=== PATIENT | female | born 1975 | race Hispanic/Latino ===

== ENCOUNTER → 2017-08-12 | Outpatient (CLI) | payer OTHER ==
--- NOTE | 2017-08-12 10:33 | Diagnostic Imaging Report ---
PROCEDURE: US THYROID COMPARISON: None. INDICATIONS:THYROID NODULE TECHNIQUE: Transverse and longitudinal merino-scale sonographic images of the thyroid were obtained and supplemented with color doppler. FINDINGS: Right thyroid lobe: 4.6 x 2 x 2.3 cm. 0.6 x 0.4 x 0.6 cm nodule in the interpolar region with characteristics as follows: Solid (2 points) Hypoechoic (2 points) Wider than tall (zero points) Smooth margin (zero points) No echogenic foci (zero points) Left thyroid lobe: 5 by 2 x 2 centimeters. 0.7 x 0.4 x 0.8 cm nodule in the upper pole with characteristics as follows: Solid (2 points) Hypoechoic (2 points) Wider than tall (zero points) Smooth margin (zero points) No echogenic foci (zero points) 1.1 x 0.5 x 1.1 cm ovoid nodule in the interpolar region with characteristics as follows: Solid (2 points) Hypoechoic (2 points) Wider than tall (zero points) Smooth margin (zero points) No echogenic foci (zero points) Isthmus: 0.4 cm in thickness. CONCLUSION: Bilateral thyroid nodules as described above. Per 2017 ACR TI-RADS criteria, a followup thyroid ultrasound in one year is suggested to assess for stability of the largest left-sided nodule. Dictated by: Pascual Clement M.D. on 08/12/2017 at 10:36 Electronically approved by: Pascual Clement M.D. on 08/12/2017 at 10:36
--- NOTE | 2017-08-13 15:13 | Diagnostic Imaging Report ---
#[id number] - MGSCRBIL #BILATERAL DIGITAL SCREENING MAMMOGRAM WITH CAD: 08/12/2017 CLINICAL: Routine screening. Comparison is made to exams dated: 12/20/2014 mammogram and 06/11/2011 mammogram - [facility]. Current study contains 8 films. The tissue of both breasts is extremely dense, which lowers the sensitivity of mammography. Current study was also evaluated with a Computer Aided Detection (CAD) system. There are benign lymph nodes in both breasts. Bilateral breast implants are intact. No significant masses, calcifications, or other findings are seen in either breast. There has been no significant interval change. IMPRESSION: BENIGN There is no mammographic evidence of malignancy. A 1 year screening mammogram is recommended. The patient will be notified by letter of the results. Sean valadez/kristy:08/13/2017 10:46:50 Gasfitter: Velma RODRIGUEZ(Glen)([place]), [facility] letter sent: Compared to Prior B9 Mammogram BI-RADS: 2 Benign
== END ==
LOC: MAMMO 08:40
PROVIDERS: ATTEND Family Medicine
DX: Z12.31 Encounter for screening mammogram for malignant neoplasm of breast (principal); E04.1 Nontoxic single thyroid nodule
CPT/HCPCS: 76536; 77067

== ENCOUNTER → 2019-12-09 | Outpatient (CLI) | payer BC ==
--- NOTE | 2019-12-09 12:17 | Diagnostic Imaging Report ---
EXAM: US ABDOMEN COMPLETE DATE: 12/09/2019 10:55 AM INDICATION: ^ABDOMEN PAIN COMPARISON: None TECHNIQUE: Transverse and longitudinal vazquez scale and color doppler sonographic images of the abdomen were obtained. FINDINGS: LIVER 12.0 cm in the right midclavicular line. Normal echogenicity of the liver with normal contour, no masses. SPLEEN 8.7 cm in maximum diameter. Normal echogenicity, no masses. GALLBLADDER No gallbladder wall thickening, distension, stone, or pericholecystic fluid. Negative reported sonographic Cabrera's sign. BILE DUCTS No intra nor extra-hepatic biliary dilation. Common bile duct measures 0.2cm PANCREAS: Visualized portions are normal. RIGHT KIDNEY: 11.0 cm Echogenicity: Normal Collecting System: No hydronephrosis Stones: None Cyst/Mass: None LEFT KIDNEY: 12.2 cm Echogenicity: Normal Collecting System: No hydronephrosis Stones: None Cyst/Mass: None VESSELS: Aorta: Visualized portions are within normal size limits Inferior Vena Cava: Visualized portions are normal Main Portal Vein: 0.6 cm, normal size with hepatopetal flow. FREE FLUID: None IMPRESSION: Unremarkable complete abdominal ultrasound. Signed by: John Madden MD on 12/09/2019 12:13 PM
--- NOTE | 2019-12-09 13:42 | Diagnostic Imaging Report ---
HISTORY : Abnormal menstrual cycle COMPARISON : None Comment: Ultrasound examination of the pelvis was performed transabdominally and transvaginally. The uterus is homogeneous in echotexture. The uterus measures 9.0 x 4.1 x 5.2 cm. The endometrial stripe appears unremarkable and measures 0.7 cm in maximum thickness. Cervical nabothian cysts are noted measuring up to 1.7 and 1.2 cm. The right ovary measures 3.4 x 2.2 x 2.7 cm. Right ovarian follicle/physiologic cyst identified The left ovary is not well visualized due to overlying bowel gas. Trace free fluid is noted in the cul-de-sac, within physiologic limits. IMPRESSION : 1. Unremarkable ultrasound of the uterus for age. Cervical nabothian cyst identified. 2. Right ovary is unremarkable. Left ovary is not well visualized due to overlying bowel gas. Signed by: John Madden MD on 12/09/2019 1:39 PM
== END ==
LOC: US 10:31
PROVIDERS: ATTEND Family Medicine
DX: R10.9 Unspecified abdominal pain (principal); N92.6 Irregular menstruation, unspecified
CPT/HCPCS: 76700; 76830; 76856

== ENCOUNTER → 2019-12-20 | Outpatient (CLI) | payer BC ==
--- NOTE | 2019-12-20 13:20 | Diagnostic Imaging Report ---
EXAM: Thyroid Ultrasound INDICATION: Thyroid nodules ^[id number] ^3 ^THYROID NODULE COMPARISON: None TECHNIQUE: Transverse and sagittal images were obtained of the thyroid gland. FINDINGS: Thyroid gland: Size: Right lobe: 5.3 x 1.6 x 2.3 cm, Normal in size Left lobe: 5.2 x 1.8 x 1.9 cm, Normal in size Isthmus: 0.4 cm, Normal in size Appearance: Homogeneous echotexture without increased vascularity Masses/Nodules: Right lobe: 0.6 x 0.4 x 0.6 cm solid (2 pts) nodule in the interpolar region with smooth margin (0 pts), vjkuf-ciya-pyds (0 pts), hypoechoic (2 pts), and no calcifications (0 pts). TR4a (<1.0 cm): No follow-up. 0.5 x 0.3 x 0.5 cm solid (2 pts) nodule in the right isthmus with smooth margin (0 pts), spejo-pwgv-bijs (0 pts), hypoechoic (2 pts), and no calcifications (0 pts). Right-sided TR4a (<1.0 cm): No follow-up. Left lobe: 1.2 x 0.6 x 1.0 cm solid (2 pts) nodule in the superior pole with smooth margin (0 pts), twmis-ezxw-uvqj (0 pts), hypoechoic (2 pts), and punctate echogenic foci (3 pts). TR5c (>1.0 cm), Highly Suspicious: FNA. 0.8 x 0.5 x 0.6 cm solid (2 pts) nodule in the interpolar region with smooth margin (0 pts), xyfxr-xazk-gdlh (0 pts), hypoechoic (2 pts), and no calcifications (0 pts). TR4a (<1.0 cm): No follow-up. Parathyroid: No focal parathyroid masses. IMPRESSION: Left lobe: 1.2 x 0.6 x 1.0 cm solid (2 pts) nodule in the superior pole with smooth margin (0 pts), vevoi-citj-imce (0 pts), hypoechoic (2 pts), and punctate echogenic foci (3 pts). TR5c (>1.0 cm), Highly Suspicious: FNA. TI-RADS Lexicon: TR1, Benign: No FNA TR2, Not Suspicious: No FNA. TR3a (<1.5 cm): No follow-up. TR3b (1.5-2.5 cm), Mildly Suspicious: Follow at 1, 3, 5 years. TR3c (>2.5 cm), Mildly Suspicious: FNA. TR4a (<1.0 cm): No follow-up. TR4b (1.0-1.5 cm), Moderately Suspicious: Follow at 1, 2, 3, 5 years. TR4c (>1.5 cm), Moderately Suspicious: FNA. TR5a (<0.5 cm): No follow-up. TR5b (0.5-1.0 cm), Highly Suspicious: Follow at 1, 2, 3, 4, 5 years. TR5c (>1.0 cm), Highly Suspicious: FNA. *Rebiopsy if new suspicious features *No recommendation at this time for significant interval growth. Nodule Characteristics: * Benign features: cystic, hyperechoic, comet-tail artifact, complete halo * Minor suspicious features: solid, hypoechoic, other calcifications * Major suspicious features: microcalcifications, marked hypoechoic (less than strap muscle), suspicious lymph nodes, taller than wide, lobulated or ill-defined margins. Literature: ACR Thyroid Imaging, Reporting and Data System (TI-RADS): White Paper of the ACR TI-RADS Committee. J Am Cesar Radiol 2017. Signed by: Dr. Luis Henriquez M.D. on 12/20/2019 1:17 PM
== END ==
LOC: US 11:17
PROVIDERS: ATTEND Family Medicine
DX: E04.1 Nontoxic single thyroid nodule (principal)
CPT/HCPCS: 76536

== ENCOUNTER → 2020-01-03 | Outpatient (CLI) | payer BC ==
[~2020-01-03] MED LIST: LIDOCAINE HCL 1% LOCAL INJ 20 ML VIAL ONE
--- NOTE | 2020-01-03 10:57 | Diagnostic Imaging Report ---
HISTORY: Left suspicious thyroid nodule COMPARISON: 12/20/2019 DISCUSSION: Chair Installer image was obtained prior to the biopsy. There is a circumscribed hypoechoic nodule in the left thyroid gland measuring 1.1 x 0.5 x 0.9 cm. The procedure including the risks and complications of the procedure were explained to the patient and the patient consented. The skin was prepped and draped in the usual sterile manner. Local anesthetic (1% lidocaine) was administered under ultrasound guidance. Under ultrasound guidance, a total of 4 fine needle aspiration biopsy samples were obtained using a 5 gauge needle. The specimens were placed into Saccomanno fluid and were sent to pathology for analysis. There were no immediate complications. IMPRESSION: Successful fine needle aspiration biopsy of a left thyroid nodule. There were no immediate complications. Signed by: John Madden MD on 01/03/2020 10:54 AM
== END ==
LOC: US 09:28
PROVIDERS: ATTEND Internal Medicine Endocrinology, Diabetes & Metabolism
DX: E04.1 Nontoxic single thyroid nodule (principal)
CPT/HCPCS: 10005; 88112; 88305; J2001

== ENCOUNTER 2020-01-16 17:35 | Observation (INO) | payer BC ==
[~2020-01-16] VITALS: Ht 162.6 cm; Wt 77.1 kg
[2020-01-16 17:35] VITALS: BP 125/78
--- NOTE | 2020-01-16 17:35 | NUR ---
Received patient direct admit via EMS. Respiration even and unlabored without SOB. Call light in reach. Denies pain at this time. PIV to left AC 20g intact, patent. Patient orientated to room and how to use the bed and call light. Home Medication reconciled and clarified with the patient. Call light in reach.
--- OUTSIDE RECORDS SUMMARY | 2020-01-16 17:38 | XMS REPORT | Continuity of Care Document ---
Author Author [facility] Organization [facility] Address Unknown Phone Unavailable Care Team Providers Care Shiftman Name Role Phone Datavail Information [employer] Unavailable Un available Problems Problem Status Onset Date Classification Date Reported Comments Source M53.3 - "SACROCOCCYGEAL DISORDERS, NOT" Active 06/05/2016 [facility] [place] M62.838 - OTHER MUSCLE SPASM A ctive 05/02/2016 [facility] Attention deficit hyperactivity disorder (disorder) Resolved Problem 04/16/2019 [facility] Premenstrual dysphoric disorder (disorder) Resolved Problem 04/16/2019 [facility] Simple obesity (disorder) Acti ve Problem Medical [facility] Joint pain Active Diagnosis 09/30/2017 Elvin Soriano Medications Medication Details Route Status Patient Instructions Ordering Provider Order Date Source Ciprofloxacin 500 MG Oral Tablet [Cipro] 500 mg = 1 tab, PO, Q12H, for UTI, X 7 day, # 14 tab, 0 Refill(s), Pharmacy: [facility]/pharmacy #[id number] Active 07/13/2018 [facility] Ciprofloxacin 500 MG Oral Tablet [Cipro] 500 mg = 1 tab, PO, Q12H, for UTI, X 5 day, # 10 tab, 0 Refill(s), Pharmacy: [facility]/pharmacy #[id number] Active 06/21/2018 [facility] Wellbutrin PO, 0 Refill(s) Active 06/21/2018 [facility] Lexapro PO, Daily, 0 Refill(s) Active 06/21/2018 [facility] Vyvanse QAM, 0 Refill(s) Active 06/21/2018 [facility] Fluoxetine 1 capsule in the mo rning Orally Active 20 MG Orally Once a day Adelina Elvin Soriano Vyvanse 1 capsule in the morni ng Orally Active 50 MG Orally Once a day Adelina Elvin Soriano Allergies, Adverse Reactions, Alerts Substance Category Reaction Severity Reaction type Status Date Reported Comments Source N.K.D.A. Adverse Reaction Info Not Available Adverse Reaction Active 09/23/2017 Elvin Soirano No Known Medication Allergies Assertion Drug aller gy [facility] [place] Immunizations No Data Provided for This Section Results Order Name Results Value Reference Range Date Interpretation Comments Source URINE AND STOOL POC UA LeukEst Negative *NA* (07/12/18 8:42 PM) Negative 07/13/2018 [facility] URINE AND STOOL POC UA Uro 0.2 0.1 - 1.0 07/13/2018 [facility] URINE AND STOOL POC UA Nit Negative *NA* (07/12/18 8:42 PM) Negative 07/13/2018 [facility] URINE AND STOOL POC UA Color Dark yellow 07/13/2018 [facility] URINE AND STOOL POC UA Bili Negative *NA* (07/12/18 8:42 PM) Negative 07/13/2018 [facility] URINE AND STOOL POC UA Bld Moderate *ABN* (07/12/18 8:42 PM) Negative 07/13/2018 [facility] URINE AND STOOL POC UA Prot 30 mg/dL Negative mg/dL 07/13/2018 [facility] URINE AND STOOL POC UA Glu Negative mg/dL Negative mg/dL 07/13/2018 [facility] URINE AND STOOL POC UA Ket Negative mg/dL Negative mg/dL 07/13/2018 [facility] URINE AND STOOL POC UA Turbidity Cloudy *ABN* (07/12/18 8:42 PM) Clear 07/13/2018 [facility] URINE AND STOOL POC UA SG >=1.030 *ABN* (07/12/18 8:42 PM) <=1.030 07/13/2018 [facility] URINE AND STOOL POC UA pH 5.5 5.0 - 8.0 07/13/2018 [facility] Pathology Reports No Data Provided for This Section Diagnostic Reports Report Value Date Source Spine cervical 2 or 3 view DX EXAM: XR CERVICAL SPINE 3 VIEWS DATE: 04/13/2019 15:51 EDUCATION COUNSELOR INDICATION: - BACK MUSCLE SPASM COMPARISON: None available TECHNIQUE: AP, open-mouth odontoid and lateral radiographs of the cervical spine - 3 views FINDINGS: No spondylolisthesis present. Vertebral body heights are normal. No cervical spine fracture is identified. No prevertebral soft tissue edema observed. Anterior cervical discectomy and fusion present at C5-C7. Bone graft cage markers are in satisfactory position. Moderate facet arthropathy present at C7-T1. IMPRESSION: Satisfactory appearance of anterior cervical discectomy and fusion at C5-C7. Moderate facet arthropathy at C7-T1. 04/13/2019 [facility] Shoulder series DX EXAM: XR RI GHT SHOULDER 3 VIEWS DATE: 04/13/2019 15:50 EDUCATION COUNSELOR INDICATION: - CHRONIC RIGHT SHOULDER PAIN COMPARISON: None available TECHNIQUE: Right shoulder - 3 views FINDINGS: No fracture, periosteal reaction, or erosions identified. Joint alignment is normal. Inferior acromial spurs predisposing to rotator cuff pathology noted. Partially visualized anterior cervical discectomy and fusion hardware in the cervical spine noted. Soft tissues are unremarkable. IMPRESSION: Inferior acromial spurs predisposing to rotator cuff pathology. 04/13/2019 [facility] Hand 2 views Bilateral DX EXAM : XR BILATERAL HAND 2 VIEWS DATE: 04/13/2019 15:50 EDUCATION COUNSELOR INDICATION: - ARTHRALGIA OF HAND, LEFT, ARTHRALGIA OF HAND, RIGHT COMPARISON: None available TECHNIQUE: Bilateral PA, lateral radiographs of the hands. FINDINGS: No fracture, periosteal reaction, or erosions identified. Joint alignment is normal. Soft tissues are unremarkable. IMPRESSION: No radiographic evidence of inflammatory arthropathy identified. 04/13/2019 [facility] Hip bilat w pelvis and both lat hips DX EXAM: XR BILATERAL HIP 2 VIEWS DATE: 05/02/2016 11:28 AM CDT INDICATION: M70.61 Trochanteric bursitis, right hip COMPARISON: None TECHNIQUE: 2 views of each hip, including the pelvis FINDINGS: No acute fracture or malalignment is identified. Hip joint spaces are preserved bilaterally. SI joints are unremarkable. Lower lumbar spine appear normal. No soft tissue abnormality is identified. IMPRESSION: No significant abnormality. 05/02/2016 [facility] Hand 2 views Bilateral DX EXAM : XR BILATERAL HAND 2 VIEWS DATE: 05/02/2016 11:28 AM CDT INDICATION: M15.1 Heberden's nodes (with arthropathy) COMPARISON: None TECHNIQUE: PA and lateral radiographs of the bilateral hands. FINDINGS: No acute fracture or malalignment is identified. Joint spaces and bone mineral density are preserved. No soft tissue abnormality is identified. IMPRESSION: No significant bone or joint abnormality. 05/02/2016 [facility] Spine cervical 2 or 3 view DX EXAM: XR CERVICAL SPINE 3 VIEWS DATE: 05/02/2016 11:28 AM CDT INDICATION: Polyarthritis COMPARISON: None TECHNIQUE: AP, open-mouth odontoid and lateral views of the cervical spine FINDINGS: On the lateral views, the C-spine is visualized from C1 to C6. Alignment and vertebral body heights are intact. No fracture or dislocation. No osseous lesion. Atlantoaxial junction appears unremarkable. No soft tissue abnormality. IMPRESSION: 1. No significant abnormality identified in the C-spine. 05/02/2016 [facility] Consultation Notes No Data Provided for This Section Discharge Summaries No Data Provided for This Section History and Physicals No Data Provided for This Section Vital Signs Vital Sign Value Date Comments Source Temperature Oral (F) 99.2 F 07/13/2018 [facility] BMI Calculated 32 07/13/2018 [facility] Weight 84.574 07/13/2018 [facility] Systolic (mm Hg) 128 07/13/2018 [facility] Diastolic (mm Hg) 85 07/13/2018 [facility] Height 162.56 cm 07/13/2018 [facility] Heart Rate 78 07/13/2018 [facility] Weight 85.568 06/21/2018 [facility] BMI Calculated 32.38 06/21/2018 [facility] Height 162.56 cm 06/21/2018 [facility] Temperature Oral (F) 98.2 F 06/21/2018 [facility] Systolic (mm Hg) 151 06/21/2018 [facility] Diastolic (mm Hg) 91 06/21/2018 [facility] Heart Rate 66 06/21/2018 [facility] Weight 193.5 09/23/2017 Elvin Soriano Height 64 0 09/23/2017 Elvin Soriano Temperature Oral (F) 98.7 F 09/23/2017 Elvin Soriano Heart Rate 80 09/23/2017 Elvin Soriano Diastolic (mm Hg) 88 09/23/2017 Elvin Soriano Systolic (mm Hg) 128 09/23/2017 Elvin Soriano Encounters Location Location Details Encounter Type Encounter Number Reason For Visit Attending Provider ADM Date DC Date Status Source [facility] [place] [facility] [id number] Bassem De Jesus 05/02/2016 05/03/2016 [facility] [place] Outpatient [id number] EverardoMaame Gray 06/21/2018 Active [facility] [place] [facility] [id number] [facility] Gray 06/21/2018 06/22/2018 [facility] Out[facility] [id number] Joanna Hernandez 07/12/2018 Active [facility] [place] [facility] [id number] Rodriguez Marina 07/13/2018 07/13/2018 [facility] [place] [facility] Visit [id number] 07/17/1907/17/2018 [facility] Outpatient Imaging - [place] Outpt Diag Services [id number] Radha Ghulamcalebcarlos 04/13/2019 04/14/2019 [facility] [place] Procedures No Data Provided for This Section Assessment and Plan No Data Provided for This Section Plan of Care No Data Provided for This Section Social History Social History Date Source Social History TypeResponse Smoking Status Never smoker; Exposure to Tobacco Smoke None; Cigarette Smoking Last 365 Days No; Reg Smoking Cessation Counseling No entered on: 07/12/18 07/13/2018 [facility] Social History TypeResponse Smoking Status Never smoker; Exposure to Tobacco Smoke None; Cigarette Smoking Last 365 Days No; Reg Smoking Cessation Counseling No entered on: 07/12/18 07/13/2018 [facility] Family History No Data Provided for This Section Advance Directives No Data Provided for This Section Functional Status No Data Provided for This Section
[2020-01-16] MEDS ORDERED: VYVANSE60 M1 PO (18:05)
[2020-01-16] MEDS ORDERED: FLUOXETINE HCL40 MG PO (18:05)
[2020-01-16] MEDS ORDERED: NEXIUM40 MG PO (18:07)
[2020-01-16 18:32] VITALS: BP 125/78
[2020-01-16] MEDS ORDERED: ACETAMINOPHEN 325 MG TAB PO PRN (19:00)
--- NOTE | 2020-01-16 19:20 | NUR ---
Bedside report given to material specialist. Respiration even and unlabored without SOB. Patient lying in bed with bipap on. Call light in reach.
[2020-01-16 20:00] VITALS: BP 116/71
[2020-01-16 20:09] LABS: BASOPHILS % 0.6 % (0.0-1.0); EOSINOPHILS % 0.4 % (0.0-6.0); HEMATOCRIT 34.6 % (34.2-44.1); LYMPHOCYTES # (AUTO) 1.7 (1.0-3.2); LYMPHOCYTES % 36.9 % (18.0-39.1); MEAN CORPUSCULAR HEMOGLOBIN 32.3 pg (28-32); MEAN CORPUSCULAR HGB CONC 34.7 g/dL (31-35); MONOCYTES # (AUTO) 0.4 (0.2-0.8); MONOCYTES % 7.9 % (4.4-11.3); NEUTROPHILS # (AUTO) 2.5 (2.1-6.9); PLATELET COUNT 247 x10e3/uL (140-360); RED BLOOD COUNT 3.72 x10e6/uL (3.6-5.1); RED CELL DISTRIBUTION WIDTH 11.9 % (11.7-14.4)
[2020-01-16] MEDS ORDERED: ONDANSETRON HCL INJ 2MG/ML 2ML 2 MG/ML VIAL IV PRN (20:15)
[2020-01-16 20:20] VITALS: BP 116/71
--- NOTE | 2020-01-16 20:20 | NUR ---
PATIENT RESTING IN BED IN STABLE CONDITION, NO SIGNS OF DISTRESS NOTED. PATIENT IS ON ROOM AIR AND VOICES EPIGASTRIC PAIN AT A LEVEL OF 6, WAS MEDICATED ORDERED. PATIENT IS AWARE OF NPO AFTER MIDNIGHT FOR PROCEDURE TOMORROW AND IS GETTING READY TO SIGN CONSENT FOR IT. BED IS IN LOWEST POSITION, BOTH SIDE RAILS ARE UP, CALL LIGHT IS WITHIN EASY REACH, WILL CONTINUE TO MONITOR.
[2020-01-16 20:24] LABS: ALANINE AMINOTRANSFERASE 26 IU/L (0-55); ALBUMIN 3.8 g/dL (3.5-5.0); ALBUMIN/GLOBULIN RATIO 1.4 (0.8-2.0); ALKALINE PHOSPHATASE 48 IU/L (40-150); ANION GAP 11.7 mmol/L (8-16); BLOOD UREA NITROGEN 17 mg/dL (7-26); BUN/CREATININE RATIO 26 (6-25); CALCIUM 8.1 mg/dL (8.4-10.2); CARBON DIOXIDE 27 mmol/L (22-29); CHLORIDE 103 mmol/L (98-107); CREATININE, SERUM 0.65 mg/dL (0.57-1.11); EST GLOMERULAR FILTRATION RATE > 60 ML/MIN (60-); GLUCOSE 115 mg/dL (74-118); POTASSIUM 3.7 mmol/L (3.5-5.1); SODIUM 138 mmol/L (136-145)
[2020-01-16] MEDS: MORPHINE SULFATE 2 MG/ML SYR 1ML IV PRN (22:18)
[2020-01-17] VITALS: BP 107/62
[2020-01-17 04:00] VITALS: BP 117/58
[2020-01-17 05:35] LABS: BASOPHILS % 0.7 % (0.0-1.0); EOSINOPHILS # (AUTO) 0.1 (0.0-0.4); EOSINOPHILS % 1.4 % (0.0-6.0); HEMATOCRIT 39.3 % (34.2-44.1); HEMOGLOBIN 13.6 g/dL (12.0-16.0); LYMPHOCYTES # (AUTO) 1.6 (1.0-3.2); LYMPHOCYTES % 37.4 % (18.0-39.1); MEAN CORPUSCULAR HEMOGLOBIN 32.8 pg (28-32); MEAN CORPUSCULAR HGB CONC 34.6 g/dL (31-35); MEAN CORPUSCULAR VOLUME 94.7 fL (81-99); MONOCYTES # (AUTO) 0.4 (0.2-0.8); MONOCYTES % 9.6 % (4.4-11.3); NEUTROPHILS # (AUTO) 2.2 (2.1-6.9); NEUTROPHILS % 50.7 % (38.7-80.0); PLATELET COUNT 244 x10e3/uL (140-360); RED BLOOD COUNT 4.15 x10e6/uL (3.6-5.1); RED CELL DISTRIBUTION WIDTH 11.9 % (11.7-14.4)
[2020-01-17 06:00] LABS: ANION GAP 11.3 mmol/L (8-16); BLOOD UREA NITROGEN 14 mg/dL (7-26); BUN/CREATININE RATIO 19 (6-25); CALCIUM 8.4 mg/dL (8.4-10.2); CARBON DIOXIDE 28 mmol/L (22-29); CHLORIDE 104 mmol/L (98-107); CREATININE, SERUM 0.73 mg/dL (0.57-1.11); EST GLOMERULAR FILTRATION RATE > 60 ML/MIN (60-); GLUCOSE 105 mg/dL (74-118); POTASSIUM 4.3 mmol/L (3.5-5.1); SODIUM 139 mmol/L (136-145)
[2020-01-17] MEDS ORDERED: ZOLPIDEM TARTRATE 5 MG TAB PO PRN (06:45)
[2020-01-17] MEDS ORDERED: DOCUSATE SODIUM 100 MG CAP PO PRN (06:45)
--- NOTE | 2020-01-17 06:47 | NUR ---
H&P cc: cp HPI: 44yoF, PCP , developed cp for past months, with mild SOB. Went to [facility] ER, sent here. Has been to the ER 3 times. No stress test in past. Her symptoms related to eating, epigastric discomfort, with radiation to mid chest. Has not seen GI specialist. 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 affect labs/meds revd A/P: 44yoF GERD- IV PPI BID; GI eval; Needs EGD. Atypical CP- check echo; can get stress test outpt. likely musculoskeletal and related to GERD. Mood d/o- cont SSRI Prop: lovenox; ppi dipso; f/u testing ROSALIA KENNEY MD, PHD.
[2020-01-17] MEDS ORDERED: PANTOPRAZOLE SOD 40 MG TABEC PO SCH (07:30)
[2020-01-17 08:00] VITALS: BP 113/71
[2020-01-17] MEDS: ASPIRIN 325 MG TAB PO SCH (08:24)
[2020-01-17] MEDS: FLUOXETINE HCL 20 MG CAP PO SCH (08:24)
[2020-01-17] MEDS: MORPHINE SULFATE 2 MG/ML SYR 1ML IV PRN ×4 (08:25→21:11)
[2020-01-17 11:51] VITALS: BP 118/65
--- NOTE | 2020-01-17 12:35 | Consultation ---
DATE OF CONSULTATION: 01/17/2020 Cardiology Consultation REQUESTING PHYSICIAN: Dr. Jordan Burris. HISTORY OF PRESENT ILLNESS: , hypertension, hyperlipidemia, up to 1010 in severity, associated with diaphoresis. She denied any nausea. Has not noted any specific aggravating or alleviating factors, but believes it is worse with stress. REVIEW OF SYSTEMS: Negative except as per HPI. PAST MEDICAL HISTORY: 1. Hypertension. 2. Hyperlipidemia. 3. Prediabetes mellitus. 4. Fatty liver disease. 5. Hiatal hernia. PAST SURGICAL HISTORY: 1. Appendectomy. 2. . 3. Tummy tuck. 4. Spinal fusion. 5. Knee arthroscopy. ALLERGIES: PLEASE SEE EMR. MEDICATIONS: Please see medication list. SOCIAL HISTORY: No tobacco or illicit drugs. She does drink alcohol on occasion. 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 FAMILY HISTORY: Denies any family history of heart disease. PHYSICAL EXAMINATION: VITAL SIGNS: Temperature 98.5 degrees, pulse 87, respiratory rate 20, blood pressure 113/71, and oxygen saturation 100% on room air. GENERAL: Well-developed, well-nourished woman, in no acute distress. HEENT: Normocephalic and atraumatic. Pupils are equal. No scleral icterus. NECK: Supple. No thyromegaly or cervical lymphadenopathy. No carotid bruits. LUNGS: Clear to auscultation bilaterally. No wheezes or crackles. CARDIOVASCULAR: Normal rate. Regular rhythm. No murmur. Normal S1 and S2. ABDOMEN: Soft and nontender. EXTREMITIES: No edema. NEUROLOGIC: Nonfocal exam. LABORATORY DATA: WBC 4.38, hemoglobin 13.6, hematocrit 39.3, and platelets 244. Sodium 139, potassium 4.3, chloride 104, CO2 28, BUN 14, and creatinine 0.73. EKG, normal sinus rhythm with sinus arrhythmia. Telemetry was personally reviewed and interpreted, revealing sinus bradycardia. IMPRESSION: 1. Chest pain. 2. Hypertension. 3. Hyperlipidemia. 4. Prediabetes mellitus. 5. Fatty liver disease. 6. Hiatal hernia. RECOMMENDATIONS: No evidence of myocardial infarction on serial troponin. Given the patient's persistent chest pain, we will further evaluate with echocardiogram and nuclear stress test. GI evaluation has also been requested. Further recommendations pending test results. Continue home cardiac medications. Thank you for this consult. We will continue to follow. Deirdre Valenzuela MD ABS/MODL /[id number]
[2020-01-17] MEDS ORDERED: ONDANSETRON HCL 4 MG ORAL DISINTEGRATING TAB PO PRN (14:15)
[2020-01-17 16:00] VITALS: BP 118/78
[2020-01-17] MEDS ORDERED: ENOXAPARIN SOD INJ 40 MG/0.4 ML SYR SC SCH (17:00)
[2020-01-17 20:00] VITALS: BP 125/82
[2020-01-18] VITALS: BP 103/52
--- NOTE | 2020-01-18 00:22 | Consultation ---
DATE OF CONSULTATION: 01/17/2020 Consult Note REASON FOR CONSULT: Intermittently persistent epigastric pain for last two months. HISTORY OF PRESENTING ILLNESS: A 44-year-old female with past medical history of hypertension, hyperlipidemia, prediabetes, nonalcoholic fatty liver disease, hiatal hernia, ADHD, perimenopausal syndrome, got admitted through the emergency room with intermittently persistent epigastric pain radiating into upper chest, associated with some nausea for last two months. These upper GI symptoms are recurring. This required the patient to have several ER and urgent care visit in the last two weeks. About a week ago, she has had a CT scan done in some [facility], as per patient, CT was done with contrast and it was nonrevealing. She has been prescribed dicyclomine and Nexium from one of the ER visits. She started taking Nexium once a day, which she took it for a couple of days with some partial relief. The symptoms got so worse that she came to the emergency room today and finally got admitted for further evaluation and workup. On further questioning, the patient stated that she used to see oil painter, Dr. Christensen, two years ago, Dr. Christensen had performed upper endoscopy and she was told that she has a hiatal hernia. She is not sure why upper endoscopy was performed. On this admission, blood work essentially is unremarkable. She has also been seen by Cardiology Service. Any acute cardiac event has been ruled out. Cardiac marker troponin has been negative. She has been started on pantoprazole daily. GI is being consulted to assist in her medical management. REVIEW OF SYSTEMS: Twelve point system reviewed. Symptomatology is limited to GI system. PAST MEDICAL HISTORY: Hypertension, hyperlipidemia, ADHD, nonalcoholic fatty liver, hiatal hernia, prediabetes. PAST SURGICAL HISTORY: , appendectomy, tummy tuck, spinal infusion, knee arthroscopy. SOCIAL HISTORY: No smoking. Drinks alcohol socially. Denies using any illicit drugs. FAMILY HISTORY: Noncontributory. ALLERGIES: GLUTEN, LACTOSE. HOME MEDICATIONS: Nexium 40 mg daily, fluoxetine 40 mg daily, Vyvanse 60 mg chewable tablet daily. Inpatient medication list reviewed as per APR. PHYSICAL EXAMINATION: VITAL SIGNS: Temperature 99.2, pulse 80, respirations 20, blood pressure 118/78, oxygen saturation 100% on room air. GENERAL: Not in any apparent distress. HEENT: Moist mucous membranes. Anicteric sclerae. CVS: S1 and S2 regular. LUNGS: Bilaterally grossly clear. ABDOMEN: Soft, nondistended, palpable epigastric tenderness on deep palpation without rebound, rigidity, or guarding. Positive bowel sounds. EXTREMITIES: Warm, no leg edema. LABORATORY DATA: Electrolytes normal. Liver enzymes normal. Troponin is negative. WBC 4.38, hemoglobin 13.6, hematocrit 39.3, MCV of 94.7, and platelet count 244. IMPRESSION: 1. Dyspepsia, likely functional. 2. Gastroesophageal reflux disease. PLAN: Continue present medical management. Allow oral diet. Increase pantoprazole to twice a day. I do not suspect any pancreatitis, however, check lipase level. N.p.o. past midnight. Upper endoscopy tomorrow. Reassurance. Gildardo Riojas MD SA/JACOB /[id number]
[2020-01-18] MEDS: MORPHINE SULFATE 2 MG/ML SYR 1ML IV PRN ×3 (02:33→11:00)
[2020-01-18 04:00] VITALS: BP 110/58
[2020-01-18] MEDS ORDERED: ASPIRIN81 MG PO (06:32)
[2020-01-18] MEDS ORDERED: PROTONIX40 MG/ML PO (06:32)
[2020-01-18] MEDS: PANTOPRAZOLE SOD 40 MG TABEC PO SCH ×2 (07:30→10:53)
--- NOTE | 2020-01-18 07:37 | NUR ---
patient left unit for egd.
[2020-01-18 08:00] VITALS: BP 122/81
[2020-01-18 09:58] VITALS: BP 108/47
[2020-01-18] MEDS ORDERED: MELOXICAM 7.5 MG TAB PO SCH (10:00)
[2020-01-18] MEDS: ASPIRIN 325 MG TAB PO SCH (10:53)
[2020-01-18] MEDS: FLUOXETINE HCL 20 MG CAP PO SCH (10:53)
--- NOTE | 2020-01-18 11:59 | NUR ---
patient discharged. IV access removed. telemetry removed and returned. prescriptions given to patient and patient aware of follow up appts needed. patient ambulated off unit to son's personal vehicle with all belongings.
[2020-01-18 12:00] VITALS: BP 117/82
[2020-01-18] MEDS ORDERED: PROPOFOL IV EMULSION 10 MG/ML 20 ML VIAL ONE (12:00)
[2020-01-18] MEDS ORDERED: FENTANYL CITRATE/PF 100MCG/2 ML INJ ONE (12:22)
[2020-01-18] MEDS ORDERED: MIDAZOLAM HCL 2 MG/2 ML VIAL ONE (12:22)
== END 2020-01-18 11:54 | disposition home or self-care (01) ==
LOC: MED/SURG2 17:35
PROVIDERS: ADMIT Internal Medicine; ATTEND Internal Medicine
DX: K29.70 Gastritis, unspecified, without bleeding (principal); R10.13 Epigastric pain; Z20.828 Contact with and (suspected) exposure to other viral communicable diseases; I10 Essential (primary) hypertension; R73.03 Prediabetes; K76.0 Fatty (change of) liver, not elsewhere classified; E78.5 Hyperlipidemia, unspecified; R07.9 Chest pain, unspecified; K44.9 Diaphragmatic hernia without obstruction or gangrene; K21.00 Gastro-esophageal reflux disease with esophagitis, without bleeding
CPT/HCPCS: 36415; 43239; 80048; 80053; 80061; 83036; 83690; 83880; 84484 ×2; 84702; 85025 ×2; 87086; 88305; 88312; 93005; 93306; G0378 ×3; J1650; J2270 ×3; J2405; S0164 ×2; J2250; J3010

== ENCOUNTER → 2021-01-29 | Outpatient (CLI) | payer BC ==
[~2021-01-29] MED LIST changes: +ASPIRIN81 MG PO; +FLUOXETINE HCL40 MG PO; -LIDOCAINE HCL 1% LOCAL INJ 20 ML VIAL ONE; +NEXIUM40 MG PO; +PROTONIX40 MG/ML PO; +VYVANSE60 M1 PO
== END ==
LOC: US 09:08
PROVIDERS: ATTEND Internal Medicine Endocrinology, Diabetes & Metabolism
DX: E04.1 Nontoxic single thyroid nodule (principal)
CPT/HCPCS: 76536

== ENCOUNTER → 2021-04-03 | Outpatient (CLI) | payer BC | LOC: MAMMO 13:05 | PROVIDERS: ATTEND Obstetrics & Gynecology Obstetrics | DX: Z12.31 Encounter for screening mammogram for malignant neoplasm of breast (principal) | CPT/HCPCS: 77067 ==

== ENCOUNTER 2021-05-08 12:31 | Outpatient (RCR) | payer BC | END 2021-05-17 | LOC: PT 12:31 | PROVIDERS: ATTEND Podiatrist Foot & Ankle Surgery | DX: M72.2 Plantar fascial fibromatosis (principal) ==

== ENCOUNTER 2021-06-06 13:02 | Outpatient (RCR) | payer BC | END 2021-06-16 | LOC: PT 13:02 | PROVIDERS: ATTEND Podiatrist Foot & Ankle Surgery | DX: M72.2 Plantar fascial fibromatosis (principal); M62.81 Muscle weakness (generalized); M25.672 Stiffness of left ankle, not elsewhere classified; R26.2 Difficulty in walking, not elsewhere classified ==

== ENCOUNTER → 2021-12-10 | Outpatient (CLI) | payer BC | LOC: US 10:27 | PROVIDERS: ATTEND Internal Medicine Endocrinology, Diabetes & Metabolism | DX: E04.1 Nontoxic single thyroid nodule (principal) | CPT/HCPCS: 76536 ==

== ENCOUNTER → 2024-03-31 | Day surgery (SDC) | payer BC ==
[2024-03-24 12:01] LABS: CALCIUM 8.7 mg/dL (8.4-10.2); CREATININE, SERUM 0.71 mg/dL (0.57-1.11)
[~2024-03-31] MED LIST changes: +ACETAMINOPHEN 1000 MG/100 ML 100 ML IV ONE; +CYMBALTA20 MG PO; +EPHEDRINE SULFATE INJ 50 MG/ML VIAL ONE; +FENTANYL CITRATE/PF 100MCG/2 ML INJ ONE; +GLYCOPYRROLATE INJ 0.2 MG/ML VIAL ONE; +LOESTRIN1 EAC1; +MOUNJARO10 MG/0.5; +OMEGA 3 FISH O1 EACH PO; +PROPOFOL IV EMULSION 10 MG/ML 20 ML VIAL ONE; +SEVOFLURANE INHAL SOLN 250 ML PEN BTL ONE
[2024-03-31] MEDS: CEFAZOLIN SODIUM 2 GM ONE (05:32)
[2024-03-31] MEDS: LACTATED RINGER'S 1,000 ML ONE (05:32)
[2024-03-31 07:39] VITALS: TEMP 97.4
[2024-03-31] MEDS: FENTANYL CITRATE/PF 100MCG/2 ML INJ ONE (07:58)
[2024-03-31 08:45] VITALS: BP 148/81; PULSE 82; RESP 16; O2SAT 98
== END | disposition home or self-care (01) ==
LOC: OR 05:13
PROVIDERS: ATTEND Podiatrist Foot & Ankle Surgery
DX: G57.51 Tarsal tunnel syndrome, right lower limb (principal); I83.91 Asymptomatic varicose veins of right lower extremity; Q66.91 Congenital deformity of feet, unspecified, right foot; E11.9 Type 2 diabetes mellitus without complications; E78.5 Hyperlipidemia, unspecified; K21.9 Gastro-esophageal reflux disease without esophagitis; Z01.810 Encounter for preprocedural cardiovascular examination; Z79.85 Long-term (current) use of injectable non-insulin antidiabetic drugs; Z79.899 Other long term (current) drug therapy
CPT/HCPCS: 28035; 36415; 80048; 81025; J0131; J2704; J3010; J7121

== ENCOUNTER → 2024-09-09 | Outpatient (REF) | payer BC ==
[~2024-09-09] MED LIST changes: -ACETAMINOPHEN 1000 MG/100 ML 100 ML IV ONE; -EPHEDRINE SULFATE INJ 50 MG/ML VIAL ONE; -FENTANYL CITRATE/PF 100MCG/2 ML INJ ONE; -GLYCOPYRROLATE INJ 0.2 MG/ML VIAL ONE; -PROPOFOL IV EMULSION 10 MG/ML 20 ML VIAL ONE; -SEVOFLURANE INHAL SOLN 250 ML PEN BTL ONE
== END ==
LOC: MAMMO 08:49
PROVIDERS: ATTEND Family Medicine
DX: Z12.31 Encounter for screening mammogram for malignant neoplasm of breast (principal)
CPT/HCPCS: 77067